=== PATIENT | female | born 1960 | race Caucasian/White ===

== ENCOUNTER 2021-01-31 10:26 | Emergency (ER) | payer MEDICARE, MEDICAID ==
[~2021-01-31] VITALS: Ht 154.9 cm; Wt 89.8 kg
[2021-01-31 11:48] VITALS: BP 147/92
[2021-01-31] MEDS ORDERED: diazepam inj 5 MG/ML inj. IM ONE (12:00)
== END 2021-01-31 12:36 | disposition home or self-care (01) ==
LOC: ER 10:27
DX: M25.512 Pain in left shoulder (principal); R53.1 Weakness; E78.00 Pure hypercholesterolemia, unspecified; I10 Essential (primary) hypertension; Z86.73 Personal history of transient ischemic attack (TIA), and cerebral infarction without residual deficits
CPT/HCPCS: 93005; 96372; 99283; J3360

== ENCOUNTER 2024-11-29 10:35 | Outpatient (CLI) | payer MEDICARE, MEDICAID ==
[~2024-11-29 10:35] MED LIST: ALBU17AE26 INH; ASCO100089 PO; ASPI81TA52 PO; CETI10TA15 PO; HYDR25TA4 PO; IBUP-1984 PO; LOSA100T58 PO; METO100T14 PO; MODA200T48 PO; MULT-1085 PO; OMEG-165 PO; OMEP20CA16 PO; ROSU20TA98 PO; UMEC1DIS INH
--- NOTE | 2024-11-29 15:02 | RADIOLOGY REPORT ---
CT Chest without intravenous contrast INDICATION: NICOTINE DEPENDENCE TECHNIQUE: Multidetector spiral CT of the chest was performed from the lung apices to the upper abdom en. Axial, coronal and sagittal multiplanar reformats were performed. Radiation dose : Chest: CTDI volume is 2 mGy. Dose-length product is 85 mGy*cm The dose indicators for CT are the volume computed tomography (CT) dose index (CTDIvol) and the dose length product (DLP), and are measured in units of mGy and mGy-cm, respectively. These indicators are not patient dose, but values generated from the CT scanner acquisition factors. The report includes radiation exposure data for exposures received during this examination. Comparison: None Findings: Lower neck: Normal thyroid. Lungs: Calcified granuloma in both lungs. No suspicious pulmonary nodule. Heart/Vascular Structures: Normal heart size. No pericardial effusion. Lymph Nodes: Subcentimeter mediastinal lymph nodes. Pleura: No pleural effusion or significant pneumothorax. Musculoskeletal: Chronic appearing compression deformity of T11. Multilevel degenerative disease. Soft tissues: Normal. Upper abdomen: Cholelithiasis. IMPRESSION: 1. Evidence for prior granulomatous disease. No suspicious pulmonary nodule. Lung-RADS 2-benign. Radiation optimization: All CT scans at this facility use at least one of these dose optimization tyler hniques: Automated exposure control mA and/or kV adjustment per patient size (includes targeted exams where dose is matched to clinical indication) or iterative reconstruction. HS:Y
== END 2024-11-29 23:59 | disposition home or self-care (01) ==
LOC: RAD 10:35
PROVIDERS: ATTEND Nurse Practitioner
DX: Z12.2 Encounter for screening for malignant neoplasm of respiratory organs (principal); F17.210 Nicotine dependence, cigarettes, uncomplicated; M47.816 Spondylosis without myelopathy or radiculopathy, lumbar region; J98.4 Other disorders of lung; R59.0 Localized enlarged lymph nodes; J84.10 Pulmonary fibrosis, unspecified; K80.20 Calculus of gallbladder without cholecystitis without obstruction
CPT/HCPCS: 71271